=== PATIENT | female | born 1980 | race Caucasian/White ===

== ENCOUNTER 2018-09-23 17:56 | Emergency (ER) | payer SELFPAY ==
[~2018-09-23] VITALS: Ht 157.5 cm; Wt 81.8 kg
[2018-09-23 18:34] VITALS: Ht 157.5 cm; Wt 81.8 kg
[2018-09-23] MEDS ORDERED: ZOLOFT100 MG PO (18:35)
[2018-09-23] MEDS ORDERED: SEROQUEL100 MG PO (18:35)
[2018-09-23] MEDS ORDERED: VISTARIL25 MG PO (19:10)
[2018-09-23 20:15] VITALS: BP 111/77
== END 2018-09-23 19:25 | disposition home or self-care (01) ==
LOC: D.ER 17:56
DX: F51.02 Adjustment insomnia (principal); F41.9 Anxiety disorder, unspecified

== ENCOUNTER 2019-03-14 11:47 | Emergency (ER) | payer BC ==
[~2019-03-14] VITALS: Ht 157.5 cm; Wt 85.9 kg
[~2019-03-14 11:47] MED LIST: SEROQUEL100 MG PO; VISTARIL25 MG PO; ZOLOFT100 MG PO
[2019-03-14 12:15] VITALS: BP 112/96; Ht 157.5 cm; Wt 85.9 kg
[2019-03-14 12:35] LABS: APPEARANCE CLEAR (CLEAR); BILIRUBIN NEGATIVE (NEGATIVE); COLOR YELLOW (YELLOW); GLUCOSE NEGATIVE (NEGATIVE); KETONE NEGATIVE (NEGATIVE); NITRITE NEGATIVE (NEGATIVE); PROTEIN NEGATIVE (NEGATIVE); SPECIFIC GRAVITY 1.015 (1.005-1.020); UROBILINOGEN NORMAL (NORMAL)
[2019-03-14 12:36] LABS: BASOPHILS 0.1 % (0-2); EOSINOPHILS 2.3 % (0-7); HEMATOCRIT 43.9 % (36.0-48.0); HEMOGLOBIN 14.2 g/dL (12-16); IMMATURE GRANULOCYTES 0.5 % (0-5); LYMPHOCYTES 29.5 % (15-50); MCH 29.3 pg (26.0-34.0); MCHC 32.3 g/dL (31.0-37.0); MCV 90.5 fL (80.0-100.0); MEAN PLATELET VOLUME 9.1 fL (7.4-10.4); MONOCYTES 5.3 % (2-11); NEUTROPHILS 62.3 % (40-80); PLATELET COUNT 403 10x3/uL (130-400); RBC 4.85 10x6/uL (4.00-5.40); RDW 13.5 % (11.5-14.5); WBC 9.6 10x3/uL (4.8-10.8)
[2019-03-14 12:36] LABS: BACTERIA FEW /hpf (NEGATIVE); EPITHELIAL CELLS 0-5 /hpf (0-5); WHITE CELLS - URINE 0-5 /hpf (NEGATIVE)
[2019-03-14] MEDS ORDERED: LATUDA40 MG PO (12:36)
[2019-03-14] MEDS ORDERED: ABILIFY10 MG PO (12:37)
[2019-03-14] MEDS ORDERED: KLONOPIN0.5 MG PO (12:37)
[2019-03-14 12:44] LABS: CALC OSMOLALITY 276 mosm/kg (275-300); CALCIUM 8.7 mg/dL (8.5-10.1); CARBON DIOXIDE 27.4 mmol/L (21.0-32.0); CHLORIDE - SERUM 105 mmol/L (98-107); CREATININE - SERUM 0.8 mg/dL (0.6-1.3); GLUCOSE 74 mg/dL (74-106); POTASSIUM - SERUM 4.2 mmol/L (3.5-5.1); SODIUM 141 mmol/L (136-145); UREA NITROGEN 5 mg/dL (7-18); eGFR NON AFRICAN AMERICAN 85 mL/min (90-120)
[2019-03-14 12:53] LABS: ALBUMIN 3.7 g/dL (3.4-5.0); ALKALINE PHOSPHATASE 97 U/L (46-116); ALT (SGPT) 32 U/L (10-68); AMYLASE - SERUM 65 U/L (25-115); BILIRUBIN - TOTAL 0.27 mg/dL (0.2-1.3); LIPASE 139 U/L (73-393); PROTEIN - SERUM 8.2 g/dL (6.4-8.2)
[2019-03-14 12:54] LABS: TROPONIN-I < 0.017 ng/mL (0.000-0.060)
[2019-03-14 13:34] LABS: HCG URINE NEGATIVE (NEGATIVE)
== END 2019-03-14 14:00 | disposition left against medical advice (07) ==
LOC: D.ER 11:47
PROVIDERS: Family Medicine
DX: R14.0 Abdominal distension (gaseous) (principal)